=== PATIENT | male | born 1955 | race Caucasian/White ===

== ENCOUNTER 2018-06-17 14:14 | Outpatient (REF) | payer BC, SELFPAY ==
[2018-06-21 16:28] LABS: Testosterone, Free 10.7 ng/dL (3.67-13.9); Testosterone, Total 383 ng/dL (240-950)
== END 2018-06-17 14:34 ==
LOC: NCHCN 14:14
PROVIDERS: PCP Family Medicine; Visit Provider Family Medicine
DX: E29.1 Testicular hypofunction (principal)
CPT/HCPCS: 84402; 84403

== ENCOUNTER 2018-08-20 14:00 | Outpatient (CLI) | payer BC, SELFPAY ==
[2018-08-20 17:04] LABS: Anion Gap 10.8 mmol/L (3-11); BUN 16 mg/dL (7-18); CO2 25.2 mmol/L (21.0-32.0); CREATININE 1.15 mg/dL (0.70-1.30); Calcium 8.8 mg/dL (8.5-10.1); Chloride 106 mmol/L (98-107); Glucose 114 mg/dL (70-100); Potassium 4.1 mmol/L (3.5-5.1); Sodium 142 mmol/L (136-145)
[2018-08-21 09:19] LABS: PSA, Screening 1.5 ng/ml (0-4.5)
== END 2018-08-20 14:20 ==
PROVIDERS: PCP Family Medicine; Visit Provider Nurse Practitioner Gerontology
DX: N40.1 Benign prostatic hyperplasia with lower urinary tract symptoms (principal); Z12.5 Encounter for screening for malignant neoplasm of prostate
CPT/HCPCS: 36415; 80048; 84153

== ENCOUNTER 2019-04-22 16:11 | Outpatient (REF) | payer BC, SELFPAY ==
[2019-04-22 22:13] LABS: ALT 38 U/L (12-78); AST 20 U/L (15-37); Alkaline Phosphatase 74 U/L (46-116); Anion Gap 10.4 mmol/L (3-11); BUN 17 mg/dL (7-18); Bilirubin, Total 0.4 mg/dL (0.2-1.0); CO2 24.6 mmol/L (21.0-32.0); CREATININE 0.86 mg/dL (0.70-1.30); Calcium 8.6 mg/dL (8.5-10.1); Calculated LDL 124 mg/dL; Chloride 105 mmol/L (98-107); Cholesterol 231 mg/dL (50-200); Glucose 84 mg/dL (70-100); HDL Cholesterol 45 mg/dL (40-60); Potassium 4.2 mmol/L (3.5-5.1); Sodium 140 mmol/L (136-145); Total Protein 6.7 g/dL (6.4-8.2); Triglyceride 313 mg/dL (30-150)
== END 2019-04-22 16:31 ==
LOC: NCHCN 16:11
PROVIDERS: PCP Family Medicine; Visit Provider Family Medicine
DX: E78.2 Mixed hyperlipidemia (principal); Z00.00 Encounter for general adult medical examination without abnormal findings
CPT/HCPCS: 80053; 80061; 83721

== ENCOUNTER 2019-08-13 08:40 | Outpatient (CLI) | payer BC, SELFPAY ==
[2019-08-13 09:57] LABS: Anion Gap 7.8 mmol/L (3-11); BUN 16 mg/dL (7-18); CO2 28.2 mmol/L (21.0-32.0); CREATININE 1.07 mg/dL (0.70-1.30); Calcium 8.8 mg/dL (8.5-10.1); Calculated LDL 162 mg/dL; Chloride 105 mmol/L (98-107); Cholesterol 266 mg/dL (<200); Glucose 105 mg/dL (74-106); HDL Cholesterol 50 mg/dL (40-60); Potassium 4.5 mmol/L (3.5-5.1); Sodium 141 mmol/L (136-145); Triglyceride 270 mg/dL (<150)
[2019-08-16 10:18] LABS: PSA, Screening 1.5 ng/mL (0.0-4.5)
[2019-08-17 12:16] LABS: Testosterone, Total 264 ng/dL (240-950)
== END 2019-08-13 09:00 ==
PROVIDERS: PCP Family Medicine; Visit Provider Nurse Practitioner Gerontology
DX: E78.5 Hyperlipidemia, unspecified (principal); E29.1 Testicular hypofunction; Z90.5 Acquired absence of kidney
CPT/HCPCS: 80048; 80061; 84153; 84403

== ENCOUNTER 2020-08-31 21:23 | Outpatient (REF) | payer BC, SELFPAY ==
[2020-08-31 21:22] LABS: ALT 32 U/L (16-63); AST 20 U/L (15-37); Alkaline Phosphatase 77 U/L (46-116); Anion Gap 6.9 mmol/L (3-11); BUN 18 mg/dL (7-18); Bilirubin, Total 0.4 mg/dL (0.2-1.0); CO2 29.1 mmol/L (21.0-32.0); CREATININE 1.24 mg/dL (0.70-1.30); Calcium 9.1 mg/dL (8.5-10.1); Chloride 108 mmol/L (98-107); Estimated GFR 58.69 (mL/min/1.73m2); Glucose 103 mg/dL (74-106); Potassium 5.1 mmol/L (3.5-5.1); Sodium 144 mmol/L (136-145); Total Protein 6.9 g/dL (6.4-8.2)
[2020-09-01 17:37] LABS: PSA, Screening 1.8 ng/mL (0.0-4.5)
[2020-09-03 15:10] LABS: Testosterone, Total 180 ng/dL (240-950)
== END 2020-08-31 21:43 ==
LOC: NCHCN 21:23
PROVIDERS: PCP Family Medicine; Visit Provider Family Medicine
DX: E29.1 Testicular hypofunction (principal); R73.03 Prediabetes; E78.2 Mixed hyperlipidemia; I10 Essential (primary) hypertension
CPT/HCPCS: 80053; 84153; 84403

== ENCOUNTER 2021-04-04 16:34 | Outpatient (REF) | payer MEDICARE, SELFPAY ==
[2021-04-04 21:51] LABS: Abs Immature Grans 0.01 10^3/uL (0.0-0.06); Absolute Basophil Count 0.03 10^3/uL (0.0-0.2); Absolute Eosinophil Count 0.22 10^3/uL (0.0-0.7); Absolute Lymphocyte Count 0.99 10^3/uL (1.2-3.4); Absolute Monocyte Count 0.48 10^3/uL (0.1-0.8); Absolute Neutrophil Count 5.06 10^3/uL (1.2-6.7); Basophils % 0.4; Eosinophils % 3.2; HCT 43.7 % (40.0-50.0); HGB 14.6 g/dL (13.5-17.5); Immature Grans % 0.1; Lymphocytes % 14.6; MCH 30.9 pg (27.0-33.0); MCHC 33.4 % (32.0-36.0); MCV 92.4 fL (80-95); MPV 10.7 fL (8.0-11.0); Monocytes % 7.1; Neutrophils % 74.6; Nucleated RBC 0 %; Platelet Count 274 10^3/uL (130-400); RBC 4.73 10^6/uL (4.36-5.78); RDW 13.2 % (11.8-14.1); RDW-SD 45.1 fL; WBC 6.79 10^3/uL (4.4-10.8)
[2021-04-04 22:26] LABS: ALT 32 U/L (16-63); AST 19 U/L (15-37); Alkaline Phosphatase 66 U/L (46-116); Anion Gap 8.7 mmol/L (3-11); BUN 16 mg/dL (7-18); Bilirubin, Total 0.3 mg/dL (0.2-1.0); C-Reactive Protein 0.12 mg/dL (0.0-0.3); CO2 25.3 mmol/L (21.0-32.0); CREATININE 1.1 mg/dL (0.70-1.30); Calcium 8.9 mg/dL (8.5-10.1); Chloride 108 mmol/L (98-107); Glucose 131 mg/dL (74-106); Potassium 3.9 mmol/L (3.5-5.1); Sodium 142 mmol/L (136-145); Total Protein 6.7 g/dL (6.4-8.2)
[2021-04-04 22:27] LABS: Hemoglobin A1C 5.7 % (<5.7)
[2021-04-04 22:37] LABS: Calculated LDL 119 mg/dL (<100); Cholesterol 233 mg/dL (<200); HDL Cholesterol 55 mg/dL (40-60); Triglyceride 296 mg/dL (<150)
== END 2021-04-04 16:35 | disposition home or self-care (01) ==
LOC: NCHCN 16:34
PROVIDERS: PCP Family Medicine; Visit Provider Family Medicine
DX: I10 Essential (primary) hypertension (principal); R73.03 Prediabetes; G47.33 Obstructive sleep apnea (adult) (pediatric); F32.9 Major depressive disorder, single episode, unspecified
CPT/HCPCS: 80053; 80061; 83036; 85025; 86140

== ENCOUNTER 2021-04-12 01:37 | Outpatient (CLI) | payer MEDICARE, SELFPAY ==
--- NOTE | 2021-04-12 | DI.US_ITS ---
Exam(s) US ABDOMEN EXAM: US ABDOMEN CLINICAL HISTORY: ENLARGED LIVER, R16.0 TECHNIQUE: Ultrasound of complete upper abdomen performed using standard protocol. COMPARISON: No exams were available for comparison FINDINGS: There is no ascites evident. LIVER: Liver size appears upper normal-minimally prominent. Liver appears hyperechoic indicating ayden ment of steatosis. There are no discrete focal hepatic lesions identified. GALLBLADDER/BILIARY: There are multiple gallstones within the gallbladder. The gallbladder is not di stended the gallbladder wall is not edematous. The common hepatic duct isnot dilated, measuring 3-4mm at the level of ramya hepatis. PANCREAS: There is no evidence of pancreatic mass nor dilatation of the pancreatic duct. SPLEEN: The spleen is not enlarged and there are no intrasplenic lesions evident. KIDNEYS:The right kidney is not identified. Patient informed detect that this is an atrophic-hypopla stic right kidney. Left kidney measures 13.2 cm length, probably compensatory. There is a cyst in t he superior aspect of the left kidney which measures 5 cm diameter. ABDOMINAL AORTA: There is no evidence of abdominal aortic aneurysm. IVC: Normal diameter where visualized. IMPRESSION: 1. Cholelithiasis. There are multiple gallstones. No evidence of acute cholecystitis nor dilatatio n of the biliary tree. The patient was apparently not tender over this area during scanning today. 2. Hepatic steatosis. Correlation with appropriate hepatic blood work is recommended. 3. Atrophic right kidney with compensatory enlargement of the left kidney. Patient apparently aware that he has an atrophic right kidney. 4. There is no ascites. DATA REPOSITORY:
== END 2021-04-12 01:57 ==
PROVIDERS: PCP Family Medicine; Visit Provider Family Medicine
DX: K80.20 Calculus of gallbladder without cholecystitis without obstruction (principal); K76.0 Fatty (change of) liver, not elsewhere classified; N28.81 Hypertrophy of kidney
CPT/HCPCS: 76700

== ENCOUNTER 2021-10-15 03:35 | Outpatient (CLI) | payer MEDICARE, SELFPAY ==
[2021-10-15 18:40] LABS: Albumin 4.1 g/dL (3.4-5.0); Alkaline Phosphatase 84 U/L (46-116); BUN 12 mg/dL (7-18); Bilirubin, Total 0.3 mg/dL (0.2-1.0); Calcium 8.8 mg/dL (8.5-10.1); Chloride 104 mmol/L (98-107); Glucose 112 mg/dL (74-106); Potassium 4.2 mmol/L (3.5-5.1); Sodium 141 mmol/L (136-145); Total Protein 7.2 g/dL (6.4-8.2)
[2021-10-15 19:42] LABS: ALT 35 U/L (16-63); AST 20 U/L (15-37)
[2021-10-16 16:50] LABS: PSA, Screening 2.7 ng/mL (0.0-4.5)
== END 2021-10-15 03:36 | disposition home or self-care (01) ==
LOC: LBO 03:35
PROVIDERS: PCP Family Medicine; Visit Provider Nurse Practitioner Gerontology
DX: N13.8 Other obstructive and reflux uropathy (principal); N40.1 Benign prostatic hyperplasia with lower urinary tract symptoms; Z90.5 Acquired absence of kidney; Z80.42 Family history of malignant neoplasm of prostate; Z12.5 Encounter for screening for malignant neoplasm of prostate
CPT/HCPCS: 36415; 80053; 84153

== ENCOUNTER → 2021-10-23 10:22 | Outpatient (BNVA) | payer MEDICARE, SELFPAY | PROVIDERS: PCP Family Medicine; Referring Provider Family Medicine; Visit Provider Nurse Practitioner Gerontology | DX: N40.1 Benign prostatic hyperplasia with lower urinary tract symptoms (principal); N13.8 Other obstructive and reflux uropathy; Z80.42 Family history of malignant neoplasm of prostate; Z90.5 Acquired absence of kidney | CPT/HCPCS: 81003; 99214 ==

== ENCOUNTER → 2021-11-28 09:56 | Outpatient (BNVA) | payer MEDICARE, SELFPAY | PROVIDERS: PCP Family Medicine; Referring Provider Family Medicine; Visit Provider Nurse Practitioner Gerontology | DX: Z90.5 Acquired absence of kidney (principal); N40.1 Benign prostatic hyperplasia with lower urinary tract symptoms; N13.8 Other obstructive and reflux uropathy | CPT/HCPCS: 99214 ==

== ENCOUNTER → 2022-02-21 10:30 | Outpatient (BNVA) | payer MEDICARE, SELFPAY | PROVIDERS: PCP Family Medicine; Referring Provider Family Medicine; Visit Provider Nurse Practitioner Gerontology | DX: N40.1 Benign prostatic hyperplasia with lower urinary tract symptoms (principal); N13.8 Other obstructive and reflux uropathy; Z90.5 Acquired absence of kidney | CPT/HCPCS: 51798; 99215 ==

== ENCOUNTER 2022-04-05 09:43 | Outpatient (REF) | payer MEDICARE, SELFPAY ==
[2022-04-05 18:15] LABS: ALT 45 U/L (16-63); AST 32 U/L (15-37); Albumin 4.4 g/dL (3.4-5.0); Alkaline Phosphatase 64 U/L (46-116); Anion Gap 8.8 mmol/L (3-11); BUN 18 mg/dL (7-18); Bilirubin, Total 0.5 mg/dL (0.2-1.0); CO2 28.2 mmol/L (21.0-32.0); CREATININE 0.9 mg/dL (0.70-1.30); Calcium 9.3 mg/dL (8.5-10.1); Calculated LDL 130 mg/dL (<100); Chloride 107 mmol/L (98-107); Cholesterol 207 mg/dL (<200); Glucose 99 mg/dL (74-106); HDL Cholesterol 58 mg/dL (40-60); Potassium 5.3 mmol/L (3.5-5.1); Sodium 144 mmol/L (136-145); Triglyceride 96 mg/dL (<150)
[2022-04-08 10:34] LABS: PSA, Screening 3.8 ng/mL (<=4.5)
[2022-04-20 11:03] LABS: Testosterone, Total 313 ng/dL (240-950)
== END 2022-04-05 09:44 | disposition home or self-care (01) ==
LOC: NCHCN 09:43
PROVIDERS: PCP Family Medicine; Visit Provider Family Medicine
DX: E29.1 Testicular hypofunction (principal); I10 Essential (primary) hypertension; Z12.5 Encounter for screening for malignant neoplasm of prostate; E78.2 Mixed hyperlipidemia
CPT/HCPCS: 80053; 80061; 84153; 84402; 84403

== ENCOUNTER → 2022-04-24 01:56 | Outpatient (CLI) | payer MEDICARE, SELFPAY ==
--- NOTE | 2022-04-24 07:45 | DI.US_ITS ---
Exam(s) US RENAL EXAM: US RENAL CLINICAL HISTORY: elevated PVR, ? hydro,single kidney, bph with urinary retention,luts. TECHNIQUE: Selby scale, color and spectral Doppler were used. COMPARISON: US US ABDOMEN from 04/12/2021 FINDINGS: Renal size in cm: Right: Right kidney not identified. Left: 14.9 cm in length, consistent with compe nsatory hypertrophy. Echogenicity: Normal Hydronephrosis: No Cyst or mass: 5.5 centimeter cyst upper pole left kidney. Nephrolithiasis: No Bladder:Trabeculated bladder wall.. Left ureteral jet visualized. Right ureteral jet not visualized . Prevoid vol: 1355 cc Postvoid vol: 743 cc Prostate volume 65 cc IMPRESSION: Distended, thick walled bladder with trabeculation. Markedly elevated postvoid residual. Right kidney not visualized. Compensatory hypertrophy of the left kidney. DATA REPOSITORY:
== END ==
PROVIDERS: PCP Family Medicine; Visit Provider Nurse Practitioner Gerontology
DX: N13.8 Other obstructive and reflux uropathy (principal); N40.1 Benign prostatic hyperplasia with lower urinary tract symptoms; Z90.5 Acquired absence of kidney
CPT/HCPCS: 76770

== ENCOUNTER → 2022-05-01 10:24 | Outpatient (BNVA) | payer MEDICARE, SELFPAY | PROVIDERS: PCP Family Medicine; Referring Provider Family Medicine; Visit Provider Nurse Practitioner Gerontology | DX: N40.1 Benign prostatic hyperplasia with lower urinary tract symptoms (principal); N13.8 Other obstructive and reflux uropathy; Z90.5 Acquired absence of kidney; Z80.42 Family history of malignant neoplasm of prostate | CPT/HCPCS: 99215 ==

== ENCOUNTER 2022-10-23 04:01 | Outpatient (CLI) | payer MEDICARE, SELFPAY ==
[2022-10-23 10:46] LABS: ALT 22 U/L (16-63); AST 18 U/L (15-37); Alkaline Phosphatase 76 U/L (46-116); Anion Gap 6.2 mmol/L (3-11); BUN 15 mg/dL (7-18); Bilirubin, Total 0.4 mg/dL (0.2-1.0); CO2 29.8 mmol/L (21.0-32.0); CREATININE 0.9 mg/dL (0.70-1.30); Calcium 8.9 mg/dL (8.5-10.1); Chloride 107 mmol/L (98-107); Estimated GFR 94.19 (mL/min/1.73m2); Glucose 100 mg/dL (74-106); Potassium 3.9 mmol/L (3.5-5.1); Sodium 143 mmol/L (136-145)
[2022-10-23 18:59] LABS: PSA, Screening 3.1 ng/mL (<=4.5)
== END 2022-10-23 04:02 | disposition home or self-care (01) ==
LOC: LBO 04:01
PROVIDERS: PCP Family Medicine; Visit Provider Nurse Practitioner Gerontology
DX: N13.8 Other obstructive and reflux uropathy (principal); N40.1 Benign prostatic hyperplasia with lower urinary tract symptoms; Z80.42 Family history of malignant neoplasm of prostate; Z90.5 Acquired absence of kidney; Z12.5 Encounter for screening for malignant neoplasm of prostate
CPT/HCPCS: 36415; 80053; 84153

== ENCOUNTER → 2022-10-30 09:11 | Outpatient (BNVA) | payer MEDICARE, SELFPAY | PROVIDERS: PCP Family Medicine; Referring Provider Family Medicine; Visit Provider Nurse Practitioner Gerontology | DX: N40.1 Benign prostatic hyperplasia with lower urinary tract symptoms (principal); N13.8 Other obstructive and reflux uropathy; Z80.42 Family history of malignant neoplasm of prostate; Z90.5 Acquired absence of kidney | CPT/HCPCS: 51798; 99214 ==

== ENCOUNTER → 2022-11-11 11:40 | Outpatient (BNVA) | payer MEDICARE, SELFPAY | PROVIDERS: PCP Family Medicine; Referring Provider Family Medicine; Visit Provider Nurse Practitioner Gerontology | DX: N53.19 Other ejaculatory dysfunction (principal) | CPT/HCPCS: 99441 ==

== ENCOUNTER 2023-04-30 01:39 | Outpatient (CLI) | payer MEDICARE, SELFPAY ==
--- NOTE | 2023-04-30 07:30 | DI.US_ITS ---
Exam(s) US RENAL EXAM: US RENAL CLINICAL HISTORY: monitoring for hydro dt, high PVR,FAMILY H/O PROSTATE CA,N13.8. TECHNIQUE: Selby scale, color and spectral Doppler were used. COMPARISON: US US RENAL from 04/24/2022 FINDINGS: Renal size in cm: Right: Not visualized. Left: 14.4 x 5.4 x 6.5 cm, consistent with compensatory h ypertrophy. Echogenicity: Normal Hydronephrosis: No Cyst or mass: 5.5 centimeter cyst upper pole left kidney Nephrolithiasis: No Bladder:Markedly distended. Thick-walled bladder with trabeculation. Left ureteral jet seen. Prevoid vol:1067 Postvoid vol:812 Prostate enlarged with volume of 50 cc. Gallstones noted. IMPRESSION: Distended bladder which is thick walled and trabeculated. Large postvoid residual. Atrophic right kidney. Left renal cyst. No hydronephrosis or stone. DATA REPOSITORY:
[2023-04-30 10:04] LABS: BUN 17 mg/dL (7-18); Estimated GFR 82.49 (mL/min/1.73m2)
== END 2023-04-30 01:40 | disposition home or self-care (01) ==
PROVIDERS: PCP Family Medicine; Visit Provider Nurse Practitioner Gerontology
DX: N13.8 Other obstructive and reflux uropathy (principal); N40.1 Benign prostatic hyperplasia with lower urinary tract symptoms; Z80.42 Family history of malignant neoplasm of prostate; Z90.5 Acquired absence of kidney; Z12.5 Encounter for screening for malignant neoplasm of prostate
CPT/HCPCS: 36415; 76770; 84153; 84520; 82565

== ENCOUNTER → 2023-05-07 11:14 | Outpatient (BNVA) | payer MEDICARE, SELFPAY | PROVIDERS: PCP Family Medicine; Visit Provider Nurse Practitioner Gerontology | DX: N40.1 Benign prostatic hyperplasia with lower urinary tract symptoms (principal); N13.8 Other obstructive and reflux uropathy; Z80.42 Family history of malignant neoplasm of prostate | CPT/HCPCS: 99214 ==

== ENCOUNTER 2023-08-22 18:31 | Outpatient (REF) | payer MEDICARE, SELFPAY ==
[2023-08-22 21:57] LABS: HCT 43.8 % (40.0-50.0); MCH 29.4 pg (27.0-33.0); MCV 92 fL (80-95); MPV 9.5 fL (8.0-11.0); Platelet Count 272 10^3/uL (130-400); RBC 4.77 10^6/uL (4.36-5.78); RDW 14.2 % (11.8-14.1); RDW-SD 47.9 fL; WBC 6.53 10^3/uL (4.4-10.8)
[2023-08-22 21:58] LABS: ESR 50 mm/hr (0-20)
[2023-08-22 22:18] LABS: ALT 16 U/L (16-63); AST 15 U/L (15-37); Albumin 3.4 g/dL (3.4-5.0); Alkaline Phosphatase 98 U/L (46-116); Anion Gap 9.9 mmol/L (3-11); BUN 15 mg/dL (7-18); Bilirubin, Total 0.3 mg/dL (0.2-1.0); C-Reactive Protein 0.68 mg/dL (0.0-0.3); CO2 25.1 mmol/L (21.0-32.0); Chloride 106 mmol/L (98-107); Estimated GFR 82.49 (mL/min/1.73m2); FREE T4 0.87 ng/dL (0.76-1.46); Glucose 103 mg/dL (74-106); NT-proBNP 105 pg/mL (<300); Potassium 4.2 mmol/L (3.5-5.1); Sodium 141 mmol/L (136-145); TSH 0.98 uIU/mL (0.36-3.74); Total Protein 7.6 g/dL (6.4-8.2)
[2023-08-23 21:43] LABS: Rheumatoid Factor <8.6 IU/mL (<12.0)
[2023-08-25 15:41] LABS: ANA Interpretation Negative (Negative)
== END 2023-08-22 18:32 | disposition home or self-care (01) ==
LOC: NCHCN 18:31
PROVIDERS: PCP Family Medicine; Visit Provider Family Medicine
DX: R60.9 Edema, unspecified (principal)
CPT/HCPCS: 80053; 85027; 85652; 83880; 84439; 84443; 86038; 86140; 86431

== ENCOUNTER → 2023-08-28 02:09 | Outpatient (CLI) | payer MEDICARE, SELFPAY ==
--- NOTE | 2023-08-28 | DI.US_ITS ---
APPROVED REPORT EXAM: Comprehensive 2D, Doppler, and color-flow Echocardiogram Patient Location: Out-Patient Plate Sensitizer: Alla Zhang RDCS (AE) Indications: Cardiac heart murmur, Fatigue, Edema Other Information Study Quality: Good Conclusion Left ventricular wall thickness and chamber size. Ejection fraction is 60%. Wall motion is normal. There is normal diastolic function Normal right ventricular size and function Both atria are normal in size There are no structural or hemodynamically significant valvular abnormalities Estimated right ventricular systolic pressure is 24 millimeters Hg Mildly dilated ascending aorta 3.6 cm Wall motion Left Ventricle The left ventricle is normal size. The left ventricular systolic function is normal. The left ventric ular ejection fraction is within the normal range. There is normal left ventricular wall thickness. T here is normal LV segmental wall motion. The left ventricular diastolic function is normal. There is no ventricular septal defect visualized. LVEF is 60%. Right Ventricle The right ventricle is normal size. The right ventricular systolic function is normal. Atria The left atrium size is normal. The right atrium size is normal. The interatrial septum is intact wit h no evidence for an atrial septal defect. Aortic Valve The aortic valve is normal in structure. Aortic valve is trileaflet. There is no aortic valvular sten osis. Trace aortic regurgitation. Mitral Valve The mitral valve is normal in structure. No evidence of mitral valve stenosis. Trace mitral regurgita tion. Tricuspid Valve The tricuspid valve is normal in structure. There is no tricuspid valve stenosis. Mild tricuspid regu rgitation. The RVSP is 24.4mmHg. Pulmonic Valve The pulmonary valve is normal in structure. There is no pulmonic valvular stenosis. There is no pulmo nicolas valvular regurgitation. Great Vessels The aortic root is normal in size. The ascending aorta is mildly dilated. IVC is normal in size and c ollapses >50% with inspiration. Pericardium There is no pericardial effusion. 2D Dimensions IVSD d PLAX 0.83 cm M: 0.6-1.2 Ao Root d 3.71 cm M: 3.1 - 3.7 LVPW d PLAX 0.82 cm M: 0.6 - 1.2 Ao Asc Diam d 3.60 cm M: 2.6 - 3.4 LVID d PLAX 4.66 cm M: 4.2 - 5.8 LVDs 3.20 cm M: 2.5 - 4.0 LV EF Teichholz 59.4 % FS 31.45 % LV EDV (Teich) 100.5 mL LV ESV (Teich) 40.9 mL M-Mode TAPSE 3.04 cm (M/F) >1.7 Auto EF LV EDV A4C 103.8 mL LV EDV A2C 146.3 mL LV EDV BP 123.9 mL LV ESV A4C 45.1 mL LV ESV A2C 54.5 mL LV ESV BP 49.0 mL LVEF(%) A4C 56.6 % LVEF(%) A2C 62.7 % LVEF(%) BP 60.4 % LV SV A4C 58.7 ml LV SV A2C 91.8 ml LV SV BP 74.9 ml LV CO A4C 3.1 L/min LV CO A2C 4.7 L/min LV CO BP 3.9 L/min HR A4C 53.26 BPM HR A2C 51.65 BPM LV EDV Index (BP) LV Strain Long Pk Overal Avg (s) 16.18 RV Strain Global Peak Long. Strain A4C 19.43 Global Peak Long. Strain A4C FW 22.81 LA Volume LA Length A4C 4.4 cm LA Length A2C 5.4 cm LA Area A4C s 13.17 cm2 LA Area A2C s 20.40 cm2 LA Vol A4C A-L 33.21 mL LA Vol A2C A-L 64.96 mL LA Vol Biplane A-L 51.4 mL LA Vol/BSA A4C A-L LA Vol/BSA A2C A-L LA Vol/BSA BP A-L 24.4 mL/m2 LA Vol A4C MOD 30.4 mL LA Vol A2C MOD 58.8 mL LA Vol BP MOD 46.5 mL RA Volume RA Area A4C 14.1 cm2 RA ESV A4C (A-L) 38.2mL RA Vol/BSA A4C A-L RA Length A4C 4.4 cm RA ESV A4C (MOD) 35.4mL LV Diastology MV E' medial 0.098 (>0.07 m/s) MV E Vmax 0.77 (0.4-1.3 m/s) MV E/E' MED 7.85 (<14) MV A Vmax 0.70 (0.4-1.3 m/s) MV E' lateral 0.118 (>0.1 m/s) E/A Ratio 1.1 MV E/E' LAT 6.48 (<14) MV E' Average 0.108 m/s MV E/E'(average) 7.10 Aortic Valve AoV Vmax 1.34 m/s LVOT Vmax 1.12 m/s AoV Peak Grad 7.2 mmHg LVOT Peak Grad 5.0 mmHg AoV Area (Vmax) 2.12 cm2 LVOT VTI 0.251 m AoV VTI 0.318 m LVOT Mean Grad 2.6 mmHg AoV Mean Maikel. 0.96 m/s LVOT SV 63.75 mL AoV Mean Grad 4.2 mmHg LVOT Diam s 1.75 cm AoV Area (VTI) 2.01 cm2 Velocity Ratio 0.84 Mitral Valve MV DT 206 (160-240 msec) MV Vmax TIPS 0.77 m/s MV Mean Grad 0.9 (<2mmHg) MV VTI 0.319 m Pulmonary Valve PV Vmax 1.11 (0.5-1.5 m/s) RVOT Vmax 0.59 m/s PV Peak Grad 5.0 mmHg RVOT Peak Gr. 1.4 mmHg PV Mean Maikel 0.68 m/s RVOT VTI 0.163 m PV Mean Grad 2.2 mmHg RVOT Mean Gr. 0.9 mmHg Tricuspid Valve RA Pressure 3.00 mmHg TR Vmax 2.31 m/s TV S' 0.14 m/s TR Peak Grad 21.3 mmHg RVSP (TR) 24.4 mmHg
== END ==
PROVIDERS: PCP Family Medicine; Visit Provider Family Medicine
DX: R01.1 Cardiac murmur, unspecified (principal)
CPT/HCPCS: 93306

== ENCOUNTER 2023-10-30 02:07 | Outpatient (CLI) | payer MEDICARE, SELFPAY ==
[2023-10-30 15:04] LABS: BUN 17 mg/dL (7-18); Estimated GFR 82.49 (mL/min/1.73m2)
[2023-10-31 17:41] LABS: PSA, Diagnostic 3.3 ng/mL (<=4.5)
== END 2023-10-30 02:08 | disposition home or self-care (01) ==
LOC: LBO 02:07
PROVIDERS: PCP Family Medicine; Visit Provider Nurse Practitioner Gerontology
DX: Z80.42 Family history of malignant neoplasm of prostate (principal); Z90.5 Acquired absence of kidney; N40.1 Benign prostatic hyperplasia with lower urinary tract symptoms; N13.8 Other obstructive and reflux uropathy
CPT/HCPCS: 36415; 84520; 82565; 84153

== ENCOUNTER 2023-11-04 17:56 | Outpatient (REF) | payer MEDICARE, SELFPAY ==
[2023-11-04 20:44] LABS: HCT 44.3 % (40.0-50.0); HGB 14.3 g/dL (13.5-17.5); MCH 29.1 pg (27.0-33.0); MCHC 32.3 % (32.0-36.0); MCV 90 fL (80-95); MPV 9.7 fL (8.0-11.0); Platelet Count 261 10^3/uL (130-400); RBC 4.91 10^6/uL (4.36-5.78); RDW-SD 46.7 fL
[2023-11-04 20:49] LABS: ESR 17 mm/hr (0-20)
[2023-11-04 21:06] LABS: ALT 19 U/L (16-63); AST 14 U/L (15-37); Albumin 3.9 g/dL (3.4-5.0); Alkaline Phosphatase 80 U/L (46-116); Anion Gap 10.6 mmol/L (3-11); BUN 20 mg/dL (7-18); Bilirubin, Total 0.3 mg/dL (0.2-1.0); CO2 24.4 mmol/L (21.0-32.0); Calcium 9.3 mg/dL (8.5-10.1); Chloride 106 mmol/L (98-107); Estimated GFR 82.49 (mL/min/1.73m2); Glucose 99 mg/dL (74-106); NT-proBNP 55 pg/mL (<300); Potassium 4.1 mmol/L (3.5-5.1); Sodium 141 mmol/L (136-145); Total Protein 7.4 g/dL (6.4-8.2)
[2023-11-04 21:07] LABS: C-Reactive Protein < 0.50 mg/dL (<or=0.5)
[2023-11-04 21:31] LABS: Ferritin 84 ng/mL (26-388)
== END 2023-11-04 17:57 | disposition home or self-care (01) ==
LOC: NCHCN 17:56
PROVIDERS: PCP Family Medicine; Visit Provider Nurse Practitioner Family
DX: R60.9 Edema, unspecified (principal)
CPT/HCPCS: 80053; 85027; 85652; 82728; 83880; 86140

== ENCOUNTER → 2023-11-05 11:26 | Outpatient (BNVA) | payer MEDICARE, SELFPAY | PROVIDERS: PCP Family Medicine; Visit Provider Nurse Practitioner Gerontology | DX: N40.1 Benign prostatic hyperplasia with lower urinary tract symptoms (principal); N13.8 Other obstructive and reflux uropathy; Z80.42 Family history of malignant neoplasm of prostate; Z90.5 Acquired absence of kidney | CPT/HCPCS: 99215 ==

== ENCOUNTER 2023-12-01 17:34 | Outpatient (REF) | payer MEDICARE, SELFPAY ==
[2023-12-01 21:45] LABS: Calculated LDL 140 mg/dL (<100); Cholesterol 246 mg/dL (<200); HDL Cholesterol 42 mg/dL (40-60); Triglyceride 324 mg/dL (<150)
[2023-12-03 09:01] LABS: Cyclic Citrullinated Peptide <2.5 U/mL (<5.0)
== END 2023-12-01 17:35 | disposition home or self-care (01) ==
LOC: NCHCN 17:34
PROVIDERS: PCP Family Medicine; Visit Provider Nurse Practitioner Family
DX: E78.2 Mixed hyperlipidemia (principal); M06.4 Inflammatory polyarthropathy
CPT/HCPCS: 80061; 86200

== ENCOUNTER 2024-05-05 01:38 | Outpatient (CLI) | payer MEDICARE, SELFPAY ==
--- NOTE | 2024-05-05 07:30 | DI.US_ITS ---
Exam(s) US RENAL EXAM: US RENAL CLINICAL HISTORY: monitoring left kidney for hydronephrosis,single kidney,bph w urinary obs,. TECHNIQUE: Selby scale, color and spectral Doppler were used. COMPARISON: US US RENAL from 04/30/2023 FINDINGS: Renal size in cm: Right: The right kidney is absent.. Left: 13.4. Echogenicity: Normal. Hydronephrosis: No. Cyst or mass: There is a 4.5 x 4.7 x 4.5 cm simple left renal cyst. No follow-up is recommended. Nephrolithiasis: No. Other findings: None. Bladder:The bladder wall is trabeculated. No intraluminal mass is seen. Ureteral jets: Right: Not visualized. Left: Visualized and unremarkable. Prevoid vol:963 cc Postvoid vol:501 cc Prostate: 50.3 cc Renal color flow: Symmetric and within normal limits. IMPRESSION: 1. No evidence of left hydronephrosis. Absent right kidney. 2. Trabeculated urinary bladder with a large prostate gland. Large postvoid urinary bladder volume. This may reflect chronic bladder outlet obstruction. DATA REPOSITORY:
== END 2024-05-05 01:58 ==
LOC: DI 01:38
PROVIDERS: PCP Family Medicine; Visit Provider Nurse Practitioner Gerontology
DX: Z90.5 Acquired absence of kidney (principal); N40.1 Benign prostatic hyperplasia with lower urinary tract symptoms
CPT/HCPCS: 76770

== ENCOUNTER → 2024-05-12 11:24 | Outpatient (BNVA) | payer MEDICARE, SELFPAY | PROVIDERS: PCP Family Medicine; Visit Provider Nurse Practitioner Gerontology | DX: N40.1 Benign prostatic hyperplasia with lower urinary tract symptoms (principal); N13.8 Other obstructive and reflux uropathy; Z80.42 Family history of malignant neoplasm of prostate; Z90.5 Acquired absence of kidney | CPT/HCPCS: 99214 ==

== ENCOUNTER 2024-05-12 12:54 | Outpatient (CLI) | payer MEDICARE, SELFPAY ==
[2024-05-12 13:27] LABS: BUN 19 mg/dL (7-18); Estimated GFR 81.98 (mL/min/1.73m2)
== END 2024-05-12 12:55 | disposition home or self-care (01) ==
LOC: LBO 12:55
PROVIDERS: PCP Family Medicine; Visit Provider Nurse Practitioner Gerontology
DX: Z90.5 Acquired absence of kidney (principal); N40.1 Benign prostatic hyperplasia with lower urinary tract symptoms; N13.8 Other obstructive and reflux uropathy
CPT/HCPCS: 36415; 84520; 82565

== ENCOUNTER 2024-07-01 17:01 | Outpatient (REF) | payer MEDICARE, SELFPAY ==
--- NOTE | 2024-07-01 09:01 | SKI_PTH ---
PATIENT: Rito Gustafson LOC: [facility] U#:[id number] AGE/SX: 69/M ROOM: RE07/01/[address]: Kendra Chan : 1955 BED: DIS: 07/01/2024 SPEC #: [id number] RECD: 07/01/24 17:21 STATUS: MIKIE REKaila #: [id number] EJ: 07/01/24 09:[address]: Kendra Chan DEPT: Surgical Specimen RECD BY: Caren Alfaro ENTERED: 07/01/24 17:22 SP TYPE: TADEO SWIFT DR: Heydi Verdin Tissues: 1 - SKIN BIOPSY(SHAVE/PUNCH) Procedures: SKIN LEVEL 4 Comments: [id number]
== END 2024-07-01 17:02 | disposition home or self-care (01) ==
LOC: NCHCN 17:01
PROVIDERS: PCP Family Medicine; Visit Provider Nurse Practitioner Family
DX: D48.5 Neoplasm of uncertain behavior of skin (principal); L82.1 Other seborrheic keratosis
CPT/HCPCS: 88305

== ENCOUNTER 2024-11-03 04:10 | Outpatient (CLI) | payer MEDICARE, SELFPAY ==
[2024-11-03 21:59] LABS: PSA, Screening 2.8 ng/mL (<=4.5)
== END 2024-11-03 04:11 | disposition home or self-care (01) ==
LOC: LBO 04:10
PROVIDERS: PCP Family Medicine; Visit Provider Nurse Practitioner Gerontology
DX: N40.1 Benign prostatic hyperplasia with lower urinary tract symptoms (principal); N13.8 Other obstructive and reflux uropathy; R39.9 Unspecified symptoms and signs involving the genitourinary system
CPT/HCPCS: 36415; 84153

== ENCOUNTER → 2024-11-11 08:20 | Outpatient (BNVA) | payer MEDICARE, SELFPAY | PROVIDERS: PCP Family Medicine; Visit Provider Nurse Practitioner Gerontology | DX: N40.1 Benign prostatic hyperplasia with lower urinary tract symptoms (principal); N13.8 Other obstructive and reflux uropathy; Z80.42 Family history of malignant neoplasm of prostate | CPT/HCPCS: 51798; 99214 ==

== ENCOUNTER 2025-05-04 01:29 | Outpatient (CLI) | payer MEDICARE, SELFPAY ==
--- NOTE | 2025-05-04 06:30 | DI.US_ITS ---
Exam(s) US RENAL EXAM: US RENAL CLINICAL HISTORY: monitoring single kidney,bph w urinary obs.luts,family h/o prostate ca. TECHNIQUE: Selby scale, color and spectral Doppler were used. COMPARISON: US US RENAL from 05/05/2024 FINDINGS: Renal size in cm: Right: The right kidney is absent.. Left: 13.8. Echogenicity: Normal. Hydronephrosis: No. Cyst or mass: There is a simple cyst seen in the left kidney. It measures 6.2 x 5.5 x 5 cm. No follow-up is recommended. Nephrolithiasis: No. Other findings: None. Bladder:The urinary bladder has a trabeculated appearance with 2 small diverticula noted. Ureteral jets: Right: Not visualized on this examination. Left: Visualized and unremarkable. Prevoid vol:1346 cc Postvoid vol:678 cc Prostate: 63 cc Renal color flow: Symmetric and within normal limits. IMPRESSION: 1. Solitary left kidney. There is no evidence of hydronephrosis. 2. Enlarged prostate gland. 3. Trabeculated urinary bladder with small diverticula. The findings likely reflect chronic bladder outlet obstruction/neurogenic bladder. 4. There is a large postvoid urinary bladder volume of 678 cc. DATA REPOSITORY:
== END 2025-05-04 01:49 ==
PROVIDERS: PCP Family Medicine; Visit Provider Nurse Practitioner Gerontology
DX: Z90.5 Acquired absence of kidney (principal); N40.1 Benign prostatic hyperplasia with lower urinary tract symptoms; N13.8 Other obstructive and reflux uropathy; Z80.42 Family history of malignant neoplasm of prostate
CPT/HCPCS: 76770

== ENCOUNTER 2025-05-04 04:06 | Outpatient (CLI) | payer MEDICARE, SELFPAY ==
[2025-05-04 09:14] LABS: BUN 15 mg/dL (7-18); Estimated GFR 81.47 (mL/min/1.73m2)
[2025-05-04 18:07] LABS: PSA, Diagnostic 4.2 ng/mL (<=4.5)
== END 2025-05-04 04:07 | disposition home or self-care (01) ==
LOC: LBO 04:06
PROVIDERS: PCP Family Medicine; Visit Provider Nurse Practitioner Gerontology
DX: N13.8 Other obstructive and reflux uropathy (principal); N40.1 Benign prostatic hyperplasia with lower urinary tract symptoms; Z80.42 Family history of malignant neoplasm of prostate; Z90.5 Acquired absence of kidney
CPT/HCPCS: 36415; 84520; 82565; 84153

== ENCOUNTER → 2025-05-11 11:19 | Outpatient (BNVA) | payer MEDICARE, SELFPAY | PROVIDERS: PCP Family Medicine; Visit Provider Nurse Practitioner Gerontology | DX: N40.1 Benign prostatic hyperplasia with lower urinary tract symptoms (principal); N13.8 Other obstructive and reflux uropathy; Z90.5 Acquired absence of kidney; Z80.42 Family history of malignant neoplasm of prostate | CPT/HCPCS: 99213 ==